=== PATIENT | male | born 1945 | race Caucasian/White ===

== ENCOUNTER 2017-06-09 10:51 | Day surgery (SDC) | payer MEDICARE, OTHER ==
[~2017-06-09] VITALS: Ht 180.3 cm; Wt 142.9 kg
[2017-06-09] VITALS (10 sets, daily range): BP systolic 115–143; BP diastolic 50–70
[~2017-06-09 10:51] MED LIST: Acetylcholine Injection (OR) ONE; BSS 15ml BTL ONE; BSS 500ml btl ONE; Bupivacaine 0.75% 30ml vial INJ ONE; Dexamethasone 4mg/ml vial ONE; Goniosol 2.5% Opth Soln - 15ml ONE; Kenalog-40 1ml Vial ONE; Lidocaine 2% MPF 5ml Vial INJ ONE; Maxitrol Opth Oint 3.5gm ONE; Povidone-Iodine 5% opth solution ONE; Pred Forte 1% Opth Susp 1ml ONE; Proparacaine 0.5% Opth Soln 15ml RIGHT EYE ONE; Sodium Hyaluronate 10 mg/ml 0.85ml ONE; Tetracaine 0.5% Opth 4ml Soln ONE
[2017-06-09] MEDS: Phenylephrine 2.5% Op 2ml Soln RIGHT EYE SCH ×3 (12:17→12:39)
[2017-06-09] MEDS: Tropicamide 1% Opth 15ml Soln RIGHT EYE SCH ×3 (12:17→12:40)
[2017-06-09] MEDS: Cyclopentolate 1% Opth Sol 2ml RIGHT EYE SCH ×3 (12:18→12:40)
--- NOTE | 2017-06-09 12:36 | Pre-Procedure Note/Attestation ---
Pre-Procedure Note/Attestation Complete Prior to Procedure Planned Procedure: right Procedure Narrative: ERM/CME and subluxed IOL OD Indications for Procedure Pre-Operative Diagnosis: ERM/CME and subluxed IOL OD plan for PPV/MP and possible IOL repositioning OD Attestation I attest that I discussed the nature of the procedure; its benefits; risks and complications; and alternatives (and the risks and benefits of such alternatives ), prior to the procedure, with the patient (or the patient's legal personal financial representative). I attest that, if there was a reasonable possibility of needing a blood transfusion, the patient (or the patient's legal personal financial representative) was given the [facility] standardized written summary, pursuant to the Timothy Jennifer Blood Safety Act ([place] Health and Safety Code # 1645, as amended). I attest that I re-evaluated the patient just prior to the surgery and that there has been no change in the patient's H&P, except as documented below: Antoni Bishop M.D. Jun 09, 2017 12:36
--- NOTE | 2017-06-09 12:36 | Operative Note - PDOC ---
Operative Note Operative Note Pre-op Diagnosis: ERM/CME and subluxed IOL OD; Macular pucker and macular edema, RIGHT EYE Procedure: PPV/MP/AFE OD Post-op Diagnosis: Samet Surgeon: Dario Anesthesia: local Specimen: none Complications: none Condition: stable Fluids: Minimal Estimated Blood Loss: minimal Drains: none Implant(s) used?: No Indications for Procedure Indications for the procedure: The patient has vision loss due ERM/CME and presents today for surgery after review of the risks, benefits, alternative and signing informed consent into the medical chart. Description of Procedure Procedure performed: The patient was met in the pre-operative area where informed consent was reviewed. The operative eye was verified, marked and dilated. The patient was transferred to the operative suite, where cardiopulmonary monitoring was established and peribulbar anesthetic was administered without complications. The eye was prepped and draped in sterile ophthalmic fashion. Under microscope visualization the 23 gauge infusion line was placed 4 millimeters inferotemporally. After visualization of the tip in the vitreous cavity, the infusion line was turned on. The superotemporal and superonasal cannulas were placed. Under BIOM visualization, peripheral and core vitrectomy was performed. The posterior capsule was cleared. Kenalog was used to stain the posterior pole and the ERM was removed with ILM forceps. The residual ILM was stained again and partially removed. This was limited due to lack of ICG, limited view due to anterior capsular phimosis and patient movement. Inspection of the periphery revealed no iatrogenic breaks. Air fluid exchange was removed. The eye maintained normal intraocular pressure. Subconjunctival vancomycin and dexamethasone were administered. The lid speculum was removed. The eye was cleaned of prep and drape. Atropine drop and Maxitrol ointment was applied. A pressure patch was placed. The patient was turned over to the anesthesia team and transferred in stable condition to the PACU. Antoni Bishop M.D. Jun 09, 2017 12:36
--- NOTE | 2017-06-09 12:36 | Brief Operative Note ---
Immediate Post Operative Note Operative Note Pre-op Diagnosis: ERM/CME and subluxed IOL OD plan for PPV/MP and possible IOL repositioning OD Procedure: PPV/MP/AFE OD Post-op Diagnosis: Same Post-op Diagnosis: same as pre-op Surgeon: Dario Anesthesia: local Specimen: none Complications: none Condition: stable Fluids: Min Estimated Blood Loss: minimal Drains: none Implant(s) used?: No Antoni Bishop M.D. Jun 09, 2017 12:36
[2017-06-09] MEDS ORDERED: ASPIR 8181 MG ORAL (12:48)
[2017-06-09] MEDS ORDERED: MULTIVITAMINS1 EAC2 ORAL (12:49)
[2017-06-09] MEDS ORDERED: METFORMIN HCL500 M1 ORAL (12:50)
[2017-06-09] MEDS ORDERED: ATORVASTATIN CA40 MG ORAL (12:50)
[2017-06-09] MEDS ORDERED: LOSARTAN-HCTZ1 EAC1 ORAL (12:52)
[2017-06-09] MEDS ORDERED: METOPROLOL SUCC50 MG ORAL (12:53)
[2017-06-09] MEDS ORDERED: JANUVIA25 MG ORAL (12:53)
[2017-06-09] MEDS ORDERED: Alfentanil 2ml Inj ONE (14:00)
[2017-06-09] MEDS ORDERED: LR 1000ml ONE (14:00)
[2017-06-09] MEDS ORDERED: NS Irrig 1000ml ONE (14:00)
[2017-06-09] MEDS ORDERED: Sterile Water Irrig 1000ml IRRIG ONE (14:00)
[2017-06-09] MEDS ORDERED: Midazolam 2mg/2ml Inj ONE (14:00)
[2017-06-09] MEDS ORDERED: Sodium Chloride 10ml vial INJ ONE (14:00)
[2017-06-09] MEDS ORDERED: Propofol 200mg/20ml IV ONE (14:03)
[2017-06-09] MEDS ORDERED: BSS 15ml BTL ONE (14:16)
--- NOTE | 2017-06-09 14:39 | Anethesia Preoperative Eval ---
Anesthesia Pre-op PMH/ROS General Date of Evaluation: Jun 09, 2017 Time of Evaluation: 14:27 Anesthesiologist: Leidy ASA Score: ASA 3 Mallampati Score Class I : Soft palate, uvula, fauces, pillars visible Class II: Soft palate, uvula, fauces visible Class III: Soft palate, base of uvula visible Class IV: Only hard plate visible Mallampati Classification: Class III Surgeon: Dario Diagnosis: Macular pucker right eye Surgical Procedure: Vitrectomy Family History: no anesthesia problems Allergies: Coded Allergies: No Known Allergies (Unverified , 06/04/17) Medications: see eMAR Past Medical History Cardiovascular: Reports: HTN, arrhythmia - PPM Pulmonary: Denies: asthma, COPD, TRACIE, other Gastrointestinal/Genitourinary: Denies: GERD, CRI, ESRD, other Neurologic/Psychiatric: Denies: dementia, CVA, depression/anxiety, TIA, other Endocrine: Reports: DM; Denies: hypothyroidism, steroids, other HEENT: Reports: cataract (R); Denies: cataract (L), glaucoma, ALATNA (L), ALATNA (R), other Hematology/Immune: Denies: anemia, DVT, bleeding disorder, other Musculoskeletal/Integumentary: Denies: OA, RA, DJD, DDD, edema, other Other: obesity PMH Narrative: HTN, DM, Dysrhythmia (s/p PPM), morbid obesity PSxH Narrative: PPM, eye surgery Anesthesia Pre-op Phys. Exam Physician Exam Last Vital Signs Date Time Temp Pulse Resp B/P (MAP) Pulse Ox O2 Delivery O2 Flow Rate FiO2 06/09/17 12:00 97.8 50 20 132/61 95 Room Air 97.8 Constitutional: NAD Neurologic: CN 2-12 intact Cardiovascular: RRR, no M/R/G Respiratory: CTA Gastrointestinal: S/NT/ND Airway Exam Mallampati Score: Class III MO: full ROM: full Teeth: intact Anesthesia Pre-op A/P Labs WNL Studies Pre-op Studies: EKG - SR, RBBB Risk Assessment & Plan Assessment: Class 3 patient with PPM now for vitrectomy right eye Plan: MAC, NCO2 Status Change Before Surgery: No Pre-Antibiotics Drug: None Timothy Forbes MD Jun 09, 2017 14:39
--- NOTE | 2017-06-09 14:40 | Immediate Post-Op Evaluation ---
Immediate Post-Op Evalulation Immediate Post-Op Evalulation Procedure: Vitrectomy right eye Date of Evaluation: Jun 09, 2017 Time of Evaluation: 15:36 IV Fluids: 450 Blood Pressure Systolic: 143 Blood Pressure Diastolic: 70 Pulse Rate: 51 Respiratory Rate: 20 O2 Sat by Pulse Oximetry: 97 Temperature (Fahrenheit): 98.1 Pain Score (1-10): 0 Nausea: No Vomiting: No Complications No complication Patient Status: awake, patent, none Hydration Status: adequate Drug: None Timothy Forbes MD Jun 09, 2017 14:40
--- NOTE | 2017-06-09 15:34 | 48 Hour Post Anesthesia Eval ---
Post Anesthesia Evaluation Procedure: Vitrectomy right eye Date of Evaluation: Jun 09, 2017 Time of Evaluation: 15:50 Blood Pressure Systolic: 136 0: 68 Pulse Rate: 50 Respiratory Rate: 18 O2 Sat by Pulse Oximetry: 98 Airway: patent Nausea: No Vomiting: No Pain Intensity: 0 Hydration Status: adequate Cardiopulmonary Status: Stable Mental Status/LOC: patient returned to baseline Follow-up Care/Observations: As per surgery Post-Anesthesia Complications: No anesthetic complication Follow-up care needed: N/A Timothy Forbes MD Jun 09, 2017 15:34
== END 2017-06-09 17:15 | disposition home or self-care (01) ==
LOC: SUR 10:51
DX: H35.371 Puckering of macula, right eye (principal); E11.9 Type 2 diabetes mellitus without complications; D31.31 Benign neoplasm of right choroid; I10 Essential (primary) hypertension; E78.5 Hyperlipidemia, unspecified; G47.30 Sleep apnea, unspecified; Z95.0 Presence of cardiac pacemaker; Z87.891 Personal history of nicotine dependence; I45.10 Unspecified right bundle-branch block
CPT/HCPCS: 67042; 82962; J1100; J2250; J2704; J3301; J3370; J3490; J7120; 94003; 94150